=== PATIENT | female | born 1980 | race Two or more races ===

== ENCOUNTER → 2017-07-15 | Emergency (ER) | payer OTHER ==
[~2017-07-15] VITALS: Ht 152.4 cm; Wt 61.2 kg
[~2017-07-15] MED LIST: ASPIR-LOW81 MG PO; FLUCONAZOLE150 MG PO; IBUPROFEN800 MG PO; INTESTINEX680 MG PO; IRON1TAB4 PO; KETO10TA2 PO; LEVSIN/SL0.125 MG SL; METOPROLOL SUCC25 MG PO; MONISTAT 31 EA VG; NORVASC5 MG; ORPH100T PO; SIMVASTATIN5 MG PO; SMZ-TMP DS 800-1 TAB PO
== END | disposition home or self-care (01) ==
LOC: ER 09:14
DX: R10.84 Generalized abdominal pain (principal)

== ENCOUNTER → 2017-08-15 | Emergency (ER) | payer OTHER ==
[~2017-08-15] VITALS: Ht 152.4 cm; Wt 59.4 kg
[~2017-08-15] MED LIST changes: +ZANTAC300 MG PO
== END | disposition home or self-care (01) ==
LOC: ER 23:35
DX: R10.13 Epigastric pain (principal); R00.2 Palpitations; E86.0 Dehydration

== ENCOUNTER 2017-09-28 16:40 | Emergency (ER) | payer OTHER ==
[~2017-09-28] VITALS: Ht 152.4 cm; Wt 59.0 kg
== END 2017-09-28 21:38 | disposition left against medical advice (07) ==
LOC: ER 16:40
DX: S80.01XA Contusion of right knee, initial encounter (principal); S20.01XA Contusion of right breast, initial encounter; W18.39XA Other fall on same level, initial encounter; Y93.89 Activity, other specified; Y92.098 Other place in other non-institutional residence as the place of occurrence of the external cause; Y99.8 Other external cause status

== ENCOUNTER 2017-10-28 13:28 | Emergency (ER) | payer OTHER ==
[~2017-10-28] VITALS: Ht 152.4 cm; Wt 56.7 kg
== END 2017-10-28 17:57 | disposition home or self-care (01) ==
LOC: ER 13:28 → CPU-OBS 14:19 → ER 14:19
DX: M94.0 Chondrocostal junction syndrome [Tietze] (principal)
CPT/HCPCS: G0378; G0379; 93005

== ENCOUNTER 2022-04-09 15:29 | Emergency (ER) | payer OTHER ==
[~2022-04-09] VITALS: Ht 152.4 cm; Wt 59.0 kg
[2022-04-09] MEDS ORDERED: CIPRO500 MG PO (23:02)
== END 2022-04-10 00:41 | disposition home or self-care (01) ==
LOC: ER 15:29
DX: R31.9 Hematuria, unspecified (principal); Z20.828 Contact with and (suspected) exposure to other viral communicable diseases

== ENCOUNTER → 2022-07-28 | Emergency (ER) | payer OTHER ==
[~2022-07-28] VITALS: Ht 152.4 cm; Wt 56.7 kg
[~2022-07-28] MED LIST changes: +CIPRO500 MG PO; +PEPCID AC20 MG PO; +ZESTRIL20 MG PO
== END | disposition left against medical advice (07) ==
LOC: ER 13:25
DX: Z53.21 Procedure and treatment not carried out due to patient leaving prior to being seen by health care provider (principal)

== ENCOUNTER 2024-01-23 05:22 | Inpatient (IN) | payer OTHER ==
[~2024-01-23] VITALS: Ht 152.4 cm; Wt 56.7 kg
[2024-01-23] MEDS ORDERED: TOPROL XL25 M1 (05:29)
[2024-01-23] MEDS ORDERED: SIMVASTATIN5 MG (05:30)
--- NOTE | 2024-01-23 05:39 | NUR ---
SE RECIBE PTE ALERTA Y ORIENTADA X3 LA CUAL REFIERE DOLOR DE PECHO Y ALEX EN ORINA. SE LE REALIZA EKG Y PRENSENTA A DR. RAPP EL CUAL REFIERE DEJAR EN FT.
[2024-01-23] MEDS ORDERED: RINGERS SOLUTION,LACTATED 1,000 ML IV STA (06:34)
[2024-01-23] MEDS ORDERED: CIPROFLOXACIN IN 5 % DEXTROSE 400 MG/200 ML PIGGYBAG IV STA (06:35)
[2024-01-23] MEDS ORDERED: PROMETHAZINE HCL 25 MG/ML AMPUL IV STA (06:36)
[2024-01-23] MEDS ORDERED: MEPERIDINE HCL/PF 25 MG/ML VIAL IM STA (06:36)
[2024-01-23] MEDS ORDERED: KETOROLAC TROMETHAMINE 30 MG VIAL IV STA (06:36)
[2024-01-23] MEDS ORDERED: KETOROLAC TROMETHAMINE 30 MG VIAL ONE (07:21)
[2024-01-23] MEDS ORDERED: PROMETHAZINE HCL 25 MG/ML AMPUL ONE (07:22)
[2024-01-23] MEDS ORDERED: CIPROFLOXACIN IN 5 % DEXTROSE 400 MG/200 ML PIGGYBAG IV ONE (07:22)
--- NOTE | 2024-01-23 07:53 | NUR ---
SE ORIENTA SOBRE TRATAMIENTO SE CANALIZA VENA Y SE [facility]ANK [facility] DE [facility]. SE ADMINISTRA MEDICAMENTO POR ORDEN MEDICA BAJO MEDIDAS ASEPTICAS.
[2024-01-23 08:32] LABS: CALCIUM 8.9 mg/dL (8.5-10.1); CREATININE SERUM 0.53 mg/dL (0.55-1.02); GFR 125.32; POTASSIUM 4.39 mEq/L (3.5-5.1)
[2024-01-23 08:41] LABS: HEMATOCRIT 37.2 % (36.0-45.00); HEMOGLOBIN 12.5 g/dL (12.0-15.00); MEAN CORPUSCULAR HEMOGLOBIN 28.8 pg (27.00-32.0); MEAN CORPUSCULAR HGB CONC 33.5 g/dl (32.0-36.0); PLATELET COUNT 279 K/uL (150-450); RED BLOOD COUNT 4.33 M/uL (4.00-6.00); RED CELL DISTRIBUTION WIDTH 13.5 % (11.5-14.5)
[2024-01-23] MEDS ORDERED: TAMSULOSIN HCL 0.4 MG CAP PO ONE (09:15)
[2024-01-23 10:19] LABS: URINE APPEARANCE Turbid; URINE BILIRRUBIN Small (NEGATIVE); URINE BLOOD Large; URINE COLOR Red; URINE KETONE Negative (NEGATIVE); URINE LEUKOCYTE Moderate; URINE NITRATE Positive; URINE UROBILINOGEN 0.2 E.U./dl
[2024-01-23 10:24] LABS: URINE BACTERIA 826.5 uL (0.0-1933); URINE EPITHELIAL CELLS 17.6 uL (0.0-38.8); URINE WBC 84.8 uL (0.0-23.2)
[2024-01-23 10:31] LABS: URINE GLUCOSE 500 MG/DL (NEGATIVE); URINE PROTEIN 100 (NEGATIVE); URINE RBC > 10558.9 uL (0.0-20.8)
[2024-01-23] MEDS ORDERED: KETOROLAC TROMETHAMINE 60 MG VIAL IM ONE ×2 (13:28→13:45)
[2024-01-23] MEDS ORDERED: 0.9 % SODIUM CHLORIDE 1,000 ML IV SCH (18:30)
[2024-01-23] MEDS ORDERED: ENALAPRILAT DIHYDRATE 1.25 MG/ML VIAL IV PRN (18:45)
[2024-01-23] MEDS ORDERED: MORPHINE SULFATE 2 MG/ML CARTRIDGE IV PRN (18:45)
[2024-01-23] MEDS ORDERED: ONDANSETRON HCL 4 MG in 0.9 % SODIUM CHLORIDE 50 ML IV PRN (18:45)
[2024-01-23] MEDS ORDERED: ACETAMINOPHEN 500 MG GEL..CAP PO PRN (18:45)
[2024-01-23] MEDS ORDERED: FAMOTIDINE/PF 20 MG/2 ML VIAL ONE (19:37)
[2024-01-23] MEDS ORDERED: FAMOTIDINE/PF 20 MG in 0.9 % SODIUM CHLORIDE 8 ML IV PUSH SCH (21:00)
[2024-01-24] MEDS ORDERED: PIPERACILLIN/TAZOBACTAM SODIUM 3.375 GM in 0.9 % SODIUM CHLORIDE 100 ML IV SCH
[2024-01-24 07:45] LABS: HEMATOCRIT 37.8 % (36.0-45.00); HEMOGLOBIN 12.4 g/dL (12.0-15.00); MEAN CELL VOLUME 87.1 fL (80.00-100.00); MEAN CORPUSCULAR HEMOGLOBIN 28.5 pg (27.00-32.0); MEAN CORPUSCULAR HGB CONC 32.7 g/dl (32.0-36.0); PLATELET COUNT 249 K/uL (150-450); RED BLOOD COUNT 4.34 M/uL (4.00-6.00); RED CELL DISTRIBUTION WIDTH 13.7 % (11.5-14.5)
[2024-01-24 08:18] LABS: ALBUMIN 3.5 gm/dL (3.4-5.0); ALKALINE PHOSPHATASE 70 U/L (50-136); ALT/SGPT 63 U/L (12-78); ANION GAP 9 (10.0-20.0); AST/SGOT 36 U/L (15-37); BILIRUBIN TOTAL 0.27 mg/dL (0.3-1.2); BILIRUBIN,CONJUGATED < 0.10 mg/dL (0.0-0.2); BILIRUBIN,UNCONJUGATED 0.17 mg/dL (0.0-0.6); BLOOD UREA NITROGEN 8 mg/dL (7-18); BUN CREA RATIO 11 (7.0-25.0); CALCIUM 8.4 mg/dL (8.5-10.1); CARBON DIOXIDE 24 mEq/L (21-32); CHLORIDE 113 mmol/L (98-107); CHOL HDL RATIO 3.2 (0-5.0); CHOLESTEROL 183 mg/dL (0-200); GLUCOSE FASTING 76 mg/dL (65-100); HDL 57 mg/dl (40-60); LDL 100 mg/dl (0-130); OSMOLALITY SERUM 280 MOSM/KG (275-295); POTASSIUM 4.27 mEq/L (3.5-5.1); SODIUM 142 mmol/L (136-145); TOTAL PROTEIN 6.5 gm/dL (6.4-8.2); TRIGLYCERIDES 129 mg/dL (0-150); VLDL 25 (0-39)
[2024-01-24 08:25] LABS: C-REACTIVE PROTEIN < 0.29 MG/DL (0.00-0.29)
[2024-01-24 08:39] LABS: INR 0.94; PARTIAL THROMBOPLASTIN TIME 23.2 SECONDS (22.0-34.0); PROTHROMBIN TIME 9.9 SECONDS (9.0-11.5)
[2024-01-24 08:59] LABS: ERYTHROCYTE SEDIMENTATION RATE 6 mm/hr
[2024-01-24] MEDS ORDERED: LISINOPRIL 20 MG TABLET PO SCH (09:00)
[2024-01-24] MEDS ORDERED: AMLODIPINE BESYLATE 5 MG TABLET PO SCH (09:00)
[2024-01-24] MEDS ORDERED: METOPROLOL SUCCINATE 25 MG TAB.SR.24H PO SCH (09:00)
[2024-01-24] MEDS ORDERED: TRAMADOL HCL 50 MG TABLET PO PRN (10:30)
[2024-01-24 11:15] LABS: URINE APPEARANCE Cloudy; URINE BILIRRUBIN Small (NEGATIVE); URINE BLOOD Large; URINE COLOR Red; URINE GLUCOSE Negative (NEGATIVE); URINE KETONE Negative (NEGATIVE); URINE LEUKOCYTE Moderate; URINE NITRATE Negative; URINE UROBILINOGEN 0.2 E.U./dl
[2024-01-24 11:19] LABS: URINE BACTERIA 409.4 uL (0.0-1933); URINE EPITHELIAL CELLS 14.3 uL (0.0-38.8); URINE WBC 47.3 uL (0.0-23.2)
[2024-01-24 11:35] LABS: URINE PROTEIN 100 (NEGATIVE); URINE RBC > 10558.9 uL (0.0-20.8)
[2024-01-24] MEDS ORDERED: SIMVASTATIN 10 MG TABLET PO SCH (17:00)
[2024-01-25] MEDS ORDERED: CEFEPIME HCL 2,000 MG VIAL IV SCH (01:00)
[2024-01-25] MEDS ORDERED: FAMOTIDINE/PF 20 MG/2 ML VIAL ONE (08:12)
[2024-01-25] MEDS ORDERED: KETOROLAC TROMETHAMINE 30 MG VIAL IM PRN (09:30)
[2024-01-25] MEDS ORDERED: FAMOtidine 20 MG TABLET PO SCH (21:00)
[2024-01-26 06:44] LABS: HEMATOCRIT 37.5 % (36.0-45.00); HEMOGLOBIN 12.3 g/dL (12.0-15.00); MEAN CELL VOLUME 86.7 fL (80.00-100.00); MEAN CORPUSCULAR HEMOGLOBIN 28.5 pg (27.00-32.0); MEAN CORPUSCULAR HGB CONC 32.9 g/dl (32.0-36.0); PLATELET COUNT 234 K/uL (150-450); RED BLOOD COUNT 4.32 M/uL (4.00-6.00); RED CELL DISTRIBUTION WIDTH 13.6 % (11.5-14.5)
[2024-01-26 07:08] LABS: ALBUMIN 3.4 gm/dL (3.4-5.0); BILIRUBIN TOTAL 0.19 mg/dL (0.3-1.2); CALCIUM 9.3 mg/dL (8.5-10.1); CREATININE SERUM 0.58 mg/dL (0.55-1.02); GFR 112.93; GLOBULINA 2.8 G/DL (2.4-3.5); POTASSIUM 4.31 mEq/L (3.5-5.1); TOTAL PROTEIN 6.2 gm/dL (6.4-8.2)
[2024-01-26] MEDS ORDERED: ORPHENADRINE CITRATE 30 MG/ML AMPUL IV SCH (09:00)
[2024-01-31 10:22] LABS: HEMATOCRIT 35.6 % (36.0-45.00); HEMOGLOBIN 11.6 g/dL (12.0-15.00); MEAN CELL VOLUME 85.4 fL (80.00-100.00); MEAN CORPUSCULAR HEMOGLOBIN 27.9 pg (27.00-32.0); MEAN CORPUSCULAR HGB CONC 32.7 g/dl (32.0-36.0); PLATELET COUNT 204 K/uL (150-450); RED BLOOD COUNT 4.16 M/uL (4.00-6.00); RED CELL DISTRIBUTION WIDTH 13.6 % (11.5-14.5)
[2024-01-31 11:16] LABS: PH,URINE 6.5; URINE BILIRRUBIN NEGATIVE (NEGATIVE); URINE BLOOD LARGE; URINE GLUCOSE NEGATIVE (NEGATIVE); URINE KETONE TRACE (NEGATIVE); URINE LEUKOCYTE SMALL; URINE NITRATE POSITIVE
[2024-01-31 11:42] LABS: URINE APPEARANCE BLOODY; URINE COLOR RED; URINE PROTEIN 100 (NEGATIVE)
[2024-01-31 11:43] LABS: URINE RBC LOADED /HPF; URINE WBC 0-2 /hpf
[2024-01-31 11:44] LABS: URINE BACTERIA FEW; URINE CRYSTALS NEGATIVE /HPF; URINE EPITHELIAL CELLS 0-4 /HPF; URINE MUCUS NEGATIVE
[2024-02-01 18:58] LABS: ALBUMIN 3.5 gm/dL (3.4-5.0); BILIRUBIN TOTAL 0.24 mg/dL (0.3-1.2); CREATININE SERUM 0.65 mg/dL (0.55-1.02); GFR 99.02; GLOBULINA 2.9 G/DL (2.4-3.5); POTASSIUM 4.39 mEq/L (3.5-5.1); TOTAL PROTEIN 6.4 gm/dL (6.4-8.2)
[2024-02-02 10:38] LABS: HEMATOCRIT 35.8 % (36.0-45.00); HEMOGLOBIN 11.7 g/dL (12.0-15.00); MEAN CELL VOLUME 86.3 fL (80.00-100.00); MEAN CORPUSCULAR HEMOGLOBIN 28.1 pg (27.00-32.0); MEAN CORPUSCULAR HGB CONC 32.6 g/dl (32.0-36.0); PLATELET COUNT 197 K/uL (150-450); RED BLOOD COUNT 4.15 M/uL (4.00-6.00); RED CELL DISTRIBUTION WIDTH 13.3 % (11.5-14.5)
[2024-02-03 06:41] LABS: CALCIUM 8.9 mg/dL (8.5-10.1); CREATININE SERUM 0.61 mg/dL (0.55-1.02); GFR 106.55; POTASSIUM 4.43 mEq/L (3.5-5.1)
[2024-02-04 06:22] LABS: HEMATOCRIT 35.1 % (36.0-45.00); HEMOGLOBIN 11.5 g/dL (12.0-15.00); MEAN CELL VOLUME 86.2 fL (80.00-100.00); MEAN CORPUSCULAR HEMOGLOBIN 28.2 pg (27.00-32.0); MEAN CORPUSCULAR HGB CONC 32.7 g/dl (32.0-36.0); PLATELET COUNT 214 K/uL (150-450); RED BLOOD COUNT 4.07 M/uL (4.00-6.00)
[2024-02-04] MEDS ORDERED: ACETAMINOPHEN 500 MG GEL..CAP PO PRN (08:45)
[2024-02-04 10:31] LABS: PH,URINE 5.5 (5.0-8.0); URINE APPEARANCE Turbid; URINE BILIRRUBIN Small (NEGATIVE); URINE BLOOD Large; URINE COLOR Red; URINE GLUCOSE Negative (NEGATIVE); URINE KETONE Negative (NEGATIVE); URINE LEUKOCYTE Moderate; URINE NITRATE Positive; URINE UROBILINOGEN 0.2 E.U./dl
[2024-02-04 10:33] LABS: URINE BACTERIA 437.2 uL (0.0-1933); URINE EPITHELIAL CELLS 6.3 uL (0.0-38.8); URINE WBC 98.1 uL (0.0-23.2)
[2024-02-04 10:58] LABS: URINE PROTEIN 100 (NEGATIVE); URINE RBC > 10558.9 uL (0.0-20.8)
== END 2024-02-04 15:44 | disposition home or self-care (01) | DRG 690 ==
LOC: ER 05:24 → MEDI 19:04
PROVIDERS: General Practice; Internal Medicine; ADMIT Internal Medicine; ATTEND Internal Medicine
PROC: BW21YZZ Computerized Tomography (CT Scan) of Abdomen and Pelvis using Other Contrast (ICD-10-PCS; principal; 2024-01-23)
PROC: BW28ZZZ Computerized Tomography (CT Scan) of Head (ICD-10-PCS; 2024-02-04)
DX: N39.0 Urinary tract infection, site not specified (principal); R31.0 Gross hematuria; E78.5 Hyperlipidemia, unspecified; I25.10 Atherosclerotic heart disease of native coronary artery without angina pectoris; I11.9 Hypertensive heart disease without heart failure; Z95.1 Presence of aortocoronary bypass graft

== ENCOUNTER 2024-03-22 07:23 | Inpatient (IN) | payer OTHER ==
[~2024-03-22] VITALS: Ht 152.4 cm; Wt 57.6 kg
[~2024-03-22 07:23] MED LIST changes: +SIMVASTATIN5 MG; +TOPROL XL25 M1
--- NOTE | 2024-03-22 07:37 | NUR ---
PTE ALERTA Y ORIENTADA X3 REFIERE DOLOR EN AREA PELVICA QUE IRRADIA A LA ESPALDA. PTE REFIERE SANGRADO EN ORINA CON PRESCENCIA DE COAGULOS DESDE HACE 5 HENRY; EN ADICION REFIERE PRESENTAR DOLOR DE PECHO. SE MIDEN S/V Y SE REALIZA EKG EL CUAL SE PRESENTA A MD RAPP. SE UBICA.
[2024-03-22 08:07] LABS: URINE APPEARANCE Turbid; URINE BILIRRUBIN Moderate (NEGATIVE); URINE BLOOD Large; URINE COLOR Red; URINE GLUCOSE Negative (NEGATIVE); URINE KETONE Negative (NEGATIVE); URINE LEUKOCYTE Moderate; URINE NITRATE Positive; URINE UROBILINOGEN 0.2 E.U./dl
[2024-03-22 08:11] LABS: URINE BACTERIA 2823.6 uL (0.0-1933); URINE EPITHELIAL CELLS 139.5 uL (0.0-38.8); URINE WBC 145.3 uL (0.0-23.2)
[2024-03-22 08:23] LABS: URINE PROTEIN 100 (NEGATIVE); URINE RBC > 10558.9 uL (0.0-20.8)
[2024-03-22] MEDS ORDERED: MEPERIDINE HCL/PF 50 MG/ML VIAL IM STA (08:30)
--- NOTE | 2024-03-22 08:38 | NUR ---
PTE ALERTA Y ORIENTADA X3, RN BERNAL EDUCA A PTE SOBRE TX MEDICO, LA MISMA REFIERE ENTENDER. SE [facility]ANK [facility] DE [facility] BAJO MEDIDAS ASEPTICAS Y SE ADMINISTRAN MEDICAMENTOS JAC ORDEN MEDICA.
[2024-03-22 08:45] LABS: HEMATOCRIT 37.9 % (36.0-45.00); HEMOGLOBIN 12.4 g/dL (12.0-15.00); MEAN CELL VOLUME 86.3 fL (80.00-100.00); MEAN CORPUSCULAR HEMOGLOBIN 28.1 pg (27.00-32.0); MEAN CORPUSCULAR HGB CONC 32.6 g/dl (32.0-36.0); PLATELET COUNT 273 K/uL (150-450)
[2024-03-22] MEDS ORDERED: CEFTRIAXONE SODIUM 2,000 MG VIAL IV ONE (08:45)
[2024-03-22 09:17] LABS: CALCIUM 9.2 mg/dL (8.5-10.1); CREATININE SERUM 0.72 mg/dL (0.55-1.02); GFR 87.59; POTASSIUM 4.29 mEq/L (3.5-5.1)
[2024-03-22] MEDS ORDERED: CEFTRIAXONE SODIUM 2,000 MG in 0.9 % SODIUM CHLORIDE 100 ML IV SCH (11:03)
[2024-03-22] MEDS ORDERED: ACETAMINOPHEN 500 MG GEL..CAP PO PRN (11:15)
[2024-03-22] MEDS ORDERED: 0.9 % SODIUM CHLORIDE 1,000 ML IV SCH (11:15)
[2024-03-22] MEDS ORDERED: AMLODIPINE BESYLATE 5 MG TABLET PO SCH (11:17)
[2024-03-22] MEDS ORDERED: METOPROLOL TARTRATE 25 MG TABLET PO SCH (11:18)
[2024-03-22] MEDS ORDERED: FAMOTIDINE/PF 20 MG in 0.9 % SODIUM CHLORIDE 100 ML IV SCH (11:18)
[2024-03-22] MEDS ORDERED: LISINOPRIL 20 MG TABLET PO SCH (11:18)
[2024-03-22] MEDS ORDERED: ONDANSETRON HCL 4 MG in 0.9 % SODIUM CHLORIDE 50 ML IV PRN (11:30)
[2024-03-22 12:25] VITALS: BP 141/89
[2024-03-22 12:31] LABS: ABG PH 7.356 (7.35-7.45); ABG pCO2 35.7 mmHg (35-45)
[2024-03-22 12:32] LABS: ABG PO2 90.3 mmHg (80-100); BASE EXCESS 24.7 mmol/l; BICARBONATE 26.8 mmol/l (23-25); SaO2 95.7 %; Tco2 6.7 mmol/l; allen test SATISFACTORY; o2 21 %; puncture site RADIAL RIGHT
[2024-03-22] MEDS ORDERED: MORPHINE SULFATE 2 MG/ML CARTRIDGE IV SCH (13:00)
[2024-03-22 13:18] LABS: INR 0.97; PARTIAL THROMBOPLASTIN TIME 29.8 SECONDS (22.0-34.0); PROTHROMBIN TIME 10.6 SECONDS (9.0-11.5)
[2024-03-22 17:23] VITALS: BP 151/88
[2024-03-22] MEDS ORDERED: KETOROLAC TROMETHAMINE 30 MG VIAL IV PRN (18:30)
[2024-03-23 00:06] VITALS: BP 102/60; O2SAT 98
[2024-03-23 09:40] VITALS: BP 115/80; O2SAT 97
[2024-03-23] MEDS ORDERED: TRAMADOL HCL 50 MG TABLET PO ONE (13:00)
[2024-03-23 16:25] VITALS: BP 109/68
[2024-03-23] MEDS ORDERED: TRAMADOL HCL 50 MG TABLET PO SCH (21:00)
[2024-03-24 01:24] VITALS: BP 100/66; O2SAT 98
[2024-03-24 08:26] VITALS: BP 146/89; O2SAT 98
[2024-03-24] MEDS ORDERED: ACETAMINOPHEN 500 MG GEL..CAP PO SCH (10:07)
[2024-03-24 11:07] LABS: HEMATOCRIT 35.5 % (36.0-45.00); HEMOGLOBIN 11.7 g/dL (12.0-15.00); MEAN CELL VOLUME 85.3 fL (80.00-100.00); MEAN CORPUSCULAR HEMOGLOBIN 28.1 pg (27.00-32.0); MEAN CORPUSCULAR HGB CONC 32.9 g/dl (32.0-36.0); PLATELET COUNT 235 K/uL (150-450); RED BLOOD COUNT 4.16 M/uL (4.00-6.00); RED CELL DISTRIBUTION WIDTH 14.1 % (11.5-14.5)
[2024-03-24 13:44] LABS: URINE APPEARANCE Turbid; URINE BILIRRUBIN Small (NEGATIVE); URINE BLOOD Large; URINE COLOR Red; URINE GLUCOSE Negative (NEGATIVE); URINE KETONE Negative (NEGATIVE); URINE LEUKOCYTE Moderate; URINE NITRATE Positive; URINE UROBILINOGEN 0.2 E.U./dl
[2024-03-24 13:55] LABS: URINE PROTEIN 100 (NEGATIVE); URINE RBC > 10558.9 uL (0.0-20.8)
[2024-03-24 16:38] VITALS: BP 117/71
[2024-03-25 01:48] VITALS: BP 108/63; O2SAT 98
[2024-03-25 10:37] VITALS: BP 121/75; O2SAT 99
[2024-03-25 12:15] LABS: PH,URINE 6.5 (5.0-8.0); URINE APPEARANCE Cloudy; URINE BILIRRUBIN Small (NEGATIVE); URINE BLOOD Large; URINE COLOR Red; URINE GLUCOSE Negative (NEGATIVE); URINE KETONE Negative (NEGATIVE); URINE LEUKOCYTE Small; URINE NITRATE Negative; URINE UROBILINOGEN 0.2 E.U./dl
[2024-03-25 12:16] LABS: URINE BACTERIA 614.8 uL (0.0-1933); URINE EPITHELIAL CELLS 11.4 uL (0.0-38.8); URINE WBC 87.3 uL (0.0-23.2)
[2024-03-25 12:18] LABS: URINE PROTEIN 100 (NEGATIVE); URINE RBC > 10558.9 uL (0.0-20.8)
[2024-03-25] MEDS ORDERED: FAMOtidine 20 MG TABLET PO SCH (17:00)
[2024-03-25 17:01] VITALS: BP 149/86
[2024-03-26] VITALS: BP 100/62
[2024-03-26 07:44] LABS: HEMATOCRIT 36.1 % (36.0-45.00); HEMOGLOBIN 11.6 g/dL (12.0-15.00); MEAN CELL VOLUME 87.6 fL (80.00-100.00); MEAN CORPUSCULAR HEMOGLOBIN 28.2 pg (27.00-32.0); MEAN CORPUSCULAR HGB CONC 32.1 g/dl (32.0-36.0); PLATELET COUNT 222 K/uL (150-450); RED BLOOD COUNT 4.12 M/uL (4.00-6.00); RED CELL DISTRIBUTION WIDTH 14.2 % (11.5-14.5)
[2024-03-26 07:57] LABS: ALBUMIN 3.2 gm/dL (3.4-5.0); BILIRUBIN TOTAL 0.13 mg/dL (0.3-1.2); CALCIUM 8.4 mg/dL (8.5-10.1); CREATININE SERUM 0.67 mg/dL (0.55-1.02); GFR 95.18; GLOBULINA 2.8 G/DL (2.4-3.5); POTASSIUM 4.38 mEq/L (3.5-5.1)
[2024-03-26 08:41] VITALS: BP 125/76; O2SAT 99
[2024-03-26 17:00] VITALS: BP 113/68; O2SAT 98
[2024-03-27 00:33] VITALS: BP 106/67; O2SAT 99
[2024-03-27 09:15] VITALS: BP 118/68; O2SAT 99
[2024-03-27 16:00] VITALS: BP 124/77; O2SAT 99
[2024-03-28 00:54] VITALS: BP 155/88; O2SAT 99
[2024-03-28 08:18] VITALS: BP 117/76; O2SAT 98
== END 2024-03-28 13:17 | disposition home or self-care (01) | DRG 690 ==
LOC: ER 07:25 → SEC-K 11:22 → MEDI 11:22
PROVIDERS: General Practice; Internal Medicine; Internal Medicine Infectious Disease; Pediatrics Pediatric Critical Care Medicine; ADMIT Internal Medicine; ATTEND Internal Medicine
PROC: BW21YZZ Computerized Tomography (CT Scan) of Abdomen and Pelvis using Other Contrast (ICD-10-PCS; principal; 2024-03-22)
DX: N39.0 Urinary tract infection, site not specified (principal); R31.0 Gross hematuria; I25.10 Atherosclerotic heart disease of native coronary artery without angina pectoris; K29.70 Gastritis, unspecified, without bleeding; I10 Essential (primary) hypertension